=== PATIENT | female | born 1985 | race Caucasian/White ===

== ENCOUNTER 2016-07-19 16:51 | Emergency (ER) | payer OTHER ==
[2016-07-19] MEDS ORDERED: SODIUM CHLORIDE 0.9% 1,000 ML IV ONE (17:44)
[2016-07-19] MEDS ORDERED: IOPAMIDOL-300 100 ML VIAL IVP ONE (18:39)
== END 2016-07-19 19:42 | disposition home or self-care (01) ==
DX: O99.89 Other specified diseases and conditions complicating pregnancy, childbirth and the puerperium (principal); R51 Headache; R42 Dizziness and giddiness; Z3A.14 14 weeks gestation of pregnancy
CPT/HCPCS: 36415; 70496; 80053; 83690; 85025; 99283; 99284; Q9967